=== PATIENT | female | born 1950 | race Caucasian/White ===

== ENCOUNTER 2023-06-04 13:36 | Emergency (ER) | payer MEDICAID, MEDICARE ==
[2023-06-04 14:23] VITALS: BP 162/69; O2SAT 97
[2023-06-04] MEDS ORDERED: AMOX/CLAV 875 MG/125 MG TABLET PO STA (15:21)
--- NOTE | 2023-06-04 15:22 | ED Physician Documentation ---
History of Present Illness - Stated complaint Stated Complaint: LT FT BLACK TOES - Chief complaint Chief Complaint: General - History obtained from History obtained from: Patient - Additonal information Additional information: She had trouble with her toenail on the left great toe, it fell off and then regrew but over the last 3 to 4 days she has developed discoloration of the great toe more so than the second toe. No fevers. No history of peripheral vascular disease. 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: None : None HEENT: None Psych: None Musculoskeletal: None Derm: None - Past Surgical History Past Surgical History: Yes Ortho: Other /PAPERHANGER SUPERVISOR: Other - Present Medications Home Medications: Ambulatory Orders Medication Instructions Recorded Confirmed Beclomethasone Dipropionate [Qvar] 02/13/14 02/13/14 Benazepril HCl 40 mg 02/13/14 02/13/14 Ipratropium/Albuterol Sulfate 02/13/14 02/13/14 [Combivent Respimat Inhal [place]] Triamterene/Hydrochlorothiazid 02/13/14 02/13/14 [Triamterene-Hctz 37.5-25 mg Tb] Oxycodone HCl/Acetaminophen 1 - 2 each PO Q6H PRN #15 tablet 12/12/14 [Percocet 5-325 mg Tablet] Amox/Clav 875/125 [Augmentin] 1 each PO Q12H #14 tablet 06/04/23 - Allergies Allergies/Adverse Reactions: Allergies Allergy/AdvReac Type Severity Reaction Status Date / Time No Known Drug Allergies Allergy Verified 02/13/14 15:33 - Social History Does the pt smoke?: Yes Smoking Status: Current every day smoker Does the pt drink ETOH?: Yes Does the pt have substance abuse?: No - Immunizations Immunizations are current?: Yes - POLST Patient has POLST: No PD ED PE NORMAL - Vitals Vital signs reviewed: Yes - General General: Alert and oriented X 3, No acute distress (Well-appearing nontoxic) - Extremities Extremities: Other (Left foot is warm and well-perfused with normal pedal pulses. The toenails have onychial mycosis and there is some cellulitis of the left great more than the left second toe. No pain with range of motion.) - Neuro Neuro: Alert and oriented X 3, Normal speech Results - Vitals Vitals: Vital Signs - 24 hr 06/04/23 14:13 Temperature 36.3 C L Heart Rate 78 Respiratory 18 Rate Blood Pressure 162/69 H O2 Saturation 97 Oxygen O2 Source Room air PD Medical Decision Making - ED course ED course: No evidence of peripheral vascular disease. She does have toe cellulitis treated with Augmentin and recommended podiatry follow-up for long-term care of her toenails. Departure - Departure Disposition: Home, Self Care Clinical Impression: Cellulitis of toe of left foot Condition: Good Record reviewed to determine appropriate education?: Yes Instructions: Cellulitis Dc Follow-Up: Lindsay Blanco DPM [Provider Admit Priv/Credential] - Prescriptions: Amox/Clav 875/125 [Augmentin] 1 each PO Q12H #14 tablet Comments: I sent your prescription to the [facility] pharmacy at the corner of [address] [facility] in [place]. Return if worse, it would be useful for you to follow-up with a art studio teacher, 1 is listed on this form. Forms: PCP List
== END 2023-06-04 15:45 | disposition home or self-care (01) ==
LOC: ED 13:36
DX: L03.032 Cellulitis of left toe (principal); J43.9 Emphysema, unspecified; I10 Essential (primary) hypertension; F17.200 Nicotine dependence, unspecified, uncomplicated; Z79.899 Other long term (current) drug therapy; Z79.51 Long term (current) use of inhaled steroids
CPT/HCPCS: 99282; 99283; A9270

== ENCOUNTER 2023-07-08 16:15 | Outpatient (CLI) | payer MEDICARE ==
--- NOTE | 2023-07-09 11:36 | Ultrasound Report ---
PROCEDURE: Duplex Lwr Ext Arterial Bilat INDICATIONS: HYPERTENSION TECHNIQUE: Color and pulse Doppler interrogation was performed of both lower extremity arterial systems, with im age documentation. COMPARISON: None FINDINGS: Exam is markedly limited secondary to extensive multifocal calcified plaque bilaterally. Right lower extremity: Common femoral artery: 145 cm/sec, with triphasic flow. Deep femoral artery: 160 cm/sec, with triphasic flow. Proximal superficial femoral artery: 123.4 cm/sec, with biphasic flow. Mid superficial femoral artery: 126.8 cm/sec, with biphasic (above baseline) flow. Distal superficial femoral artery (proximal): 99 cm/sec, with monophasic flow. More distally, the s uperficial femoral artery is occluded with a collateral. Popliteal artery: 30.4 cm/sec, with monophasic flow. Posterior tibial artery: 18.9 cm/sec, with monophasic trickle flow. Mid to distal posterior tibial artery is occluded Anterior tibial artery/dorsalis pedis: 66.2/16.8 cm/sec, with monophasic/monophasic flow. Abarca-scale imaging description: Extensive multifocal calcified plaque/stenoses. Distal superficial f emoral artery is occluded with a collateral vessel. Left lower extremity: Common femoral artery: 43.5 cm/sec, with monophasic flow. Deep femoral artery: 148 cm/sec, with monophasic flow. Proximal superficial femoral artery (proximal): 77 cm/sec, with monophasic flow. More distally, the proximal SFA is occluded. Mid superficial femoral artery: Occluded Distal superficial femoral artery: 129.1 cm/sec, with monophasic flow. Popliteal artery: 44.6 cm/sec, with monophasic flow. Posterior tibial artery: 44.6 cm/sec, with monophasic flow. Anterior tibial artery/dorsalis pedis: 48.5/8.9 cm/sec, with monophasic/monophasic flow. Abarca-scale imaging description: Extensive multifocal calcified plaque/stenoses. Proximal to mid SFA is occluded. Trickle flow in the dorsalis pedis. IMPRESSION: Exam is markedly limited secondary to extensive multifocal calcified plaque bilaterally. 1. Right lower extremity: - Distal superficial femoral artery is occluded with collateral flow. Monophasic flow in the visualiz ed popliteal and below the knee vasculature. Mid to distal posterior tibial artery is occluded. 2. Left lower extremity: -Monophasic waveforms throughout the patent arterial vasculature suggestive of aortoiliac inflow dise ase. -Mid superficial femoral artery is occluded. -Trickle flow in the dorsalis pedis. If patient is symptomatic, consider Vascular Surgery consultation. Reviewed by: Tiffany Joseph MD on 07/09/2023 11:35 AM PST Approved by: Tiffany Joseph MD on 07/09/2023 11:35 AM PST Station ID: [id number]
== END 2023-07-08 16:16 | disposition home or self-care (01) ==
LOC: DI 16:15
PROVIDERS: ATTEND Nurse Practitioner Family
DX: I77.1 Stricture of artery (principal); I73.9 Peripheral vascular disease, unspecified; I10 Essential (primary) hypertension
CPT/HCPCS: 93925

== ENCOUNTER 2023-09-25 14:49 | Outpatient (CLI) | payer MEDICARE ==
[2023-09-25 16:03] LABS: BASOPHILS # (AUTO) 0.1 10^3/uL (0.0-0.1); BASOPHILS % (AUTO) 1.3 %; EOSINOPHILS # (AUTO) 0.3 10^3/uL (0.0-0.7); EOSINOPHILS % (AUTO) 3.8 %; HCT - HEMATOCRIT 25.6 % (37.0-47.0); HGB - HEMOGLOBIN 7.1 g/dL (12.0-16.0); LYMPHOCYTES # (AUTO) 1.5 10^3/uL (1.5-3.5); LYMPHOCYTES % (AUTO) 20.2 %; MEAN CORPUSCULAR HEMOGLOBIN 17.5 pg (27.0-31.0); MEAN CORPUSCULAR HGB CONC 27.7 g/dL (32.0-36.0); MEAN CORPUSCULAR VOLUME 63.1 fL (81.0-99.0); MEAN PLATELET VOLUME 8.9 fL (7.9-10.8); MONOCYTES # (AUTO) 0.7 10^3/uL (0.0-1.0); MONOCYTES % (AUTO) 9.6 %; NEUTROPHILS # (AUTO) 4.7 10^3/uL (1.5-6.6); NEUTROPHILS % (AUTO) 64.8 %; PLT - PLATELET COUNT 509 10^3/uL (130-450); RED BLOOD COUNT 4.06 10^6/uL (4.20-5.40); RED CELL DISTRIBUTION WIDTH 23.3 % (12.0-15.0); WHITE BLOOD COUNT 7.2 x10^3/uL (4.8-10.8)
[2023-09-25 16:12] LABS: SLIDE REVIEW? Indicated
[2023-09-25 16:20] LABS: IRON < 10 ug/dL (50-212); TOTAL IRON BINDING CAPACITY 556 ug/dL (250-450); TRANSFERRIN 397 mg/dL (203-362)
[2023-09-25 16:41] LABS: PLATELET ESTIMATE, MANUAL INCREASED (>450,000) (NORMAL); PLATELET MORPHOLOGY NORMAL APPEARANCE (NORMAL)
[2023-09-25 17:12] LABS: FERRITIN 4.4 ng/mL (11.0-306.8)
== END 2023-09-25 14:50 | disposition home or self-care (01) ==
LOC: DI 14:49
PROVIDERS: ATTEND Nurse Practitioner Family
DX: R01.1 Cardiac murmur, unspecified (principal); I10 Essential (primary) hypertension; I73.9 Peripheral vascular disease, unspecified; J44.1 Chronic obstructive pulmonary disease with (acute) exacerbation; D50.9 Iron deficiency anemia, unspecified
CPT/HCPCS: 36415; 82728; 83540; 84466; 85025; 93307

== ENCOUNTER 2023-11-18 07:20 | Emergency (ER) | payer MEDICARE ==
--- NOTE | 2023-11-18 07:49 | ED Physician Documentation ---
PD HPI DYSPNEA - Stated complaint Stated Complaint: SOA - Chief complaint Chief Complaint: Resp - Additional information Additional information: Is a 73-year-old lady with a history of COPD and peripheral vascular disease status post left lower extremity bypass and amputation of first and second toes back in July presenting with dyspnea. Patient states she had a head cold over the past 7 to 10 days then she states that it "went down in my lungs" she has been more short of breath than usual. Her cough has been dry she has not been able to get any sputum out. She is no longer having fevers and does not feel otherwise ill but very short of breath. Using puffers 3-4 times a day. No measured fevers. No lower extremity symptoms. She is no longer smoking Patient had echocardiogram on September 25, 2023. This showed normal LV size, LV ejection fraction 60 to 65%. Normal RV normal valves. Review of Systems Constitutional: denies: Fever, Chills Respiratory: reports: Dyspnea, Cough, Wheezing PD PAST MEDICAL HISTORY - Past Medical History Cardiovascular: Hypertension, Peripheral Vascular Disease, Atrial fibrillation Respiratory: COPD, Emphysema, Other Endocrine/Autoimmune: None GI: None DATA PROCESSOR: None : None HEENT: None Psych: None Musculoskeletal: None Derm: None - Past Surgical History Past Surgical History: Yes Ortho: Other /DATA PROCESSOR: Other Cardiovascular: Vascular surgery, Other - Present Medications Home Medications: Ambulatory Orders Medication Instructions Recorded Confirmed Albuterol Sulfate [Proventil Hfa] 1 inh INH DAILY 11/18/23 11/18/23 Budesonide/Formoterol Fumarate 1 inh INH DAILY 11/18/23 11/18/23 [Symbicort 160-4.5 Mcg Inhaler] Ipratropium [place] 1 inh INH DAILY 11/18/23 11/18/23 amLODIPine [Norvasc] 1 tab PO DAILY 11/18/23 11/18/23 predniSONE [Deltasone] 60 mg PO DAILY 5 Days #15 tablet 11/18/23 - Allergies Allergies/Adverse Reactions: Allergies Allergy/AdvReac Type Severity Reaction Status Date / Time No Known Drug Allergies Allergy Verified 02/13/14 15:33 - Social History Does the pt smoke?: Yes Smoking Status: Former smoker Does the pt drink ETOH?: Yes Does the pt have substance abuse?: No - Immunizations Immunizations are current?: Yes - POLST Patient has POLST: No PD ED PE NORMAL - General General: Alert and oriented X 3 - HEENT HEENT: Atraumatic - Neck Neck: Supple, no meningeal sign - Cardiac Cardiac: RRR, No murmur - Respiratory Respiratory: Other (Markedly diminished and tight bilaterally. Using accessory muscles. Mild tachypnea. Faint end expiratory wheezing) - Abdomen Abdomen: Normal bowel sounds - Extremities Extremities: Other (Extremities warm and well-perfused. Her left first and second toe amp's are healing well.) Results - Vitals Vitals: Vital Signs - 24 hr 11/18/23 11/18/23 11/18/23 07:28 08:33 08:47 Temperature 36.5 C Heart Rate 92 83 90 Respiratory 20 12 12 Rate Blood Pressure 152/77 H O2 Saturation 96 11/18/23 11/18/23 11/18/23 08:52 09:45 11:00 Temperature Heart Rate 90 109 H 96 Respiratory 12 20 18 Rate Blood Pressure 155/83 H 153/83 H O2 Saturation 92 98 Oxygen O2 Source Room air - EKG (time done) 0741 EKG releavant findings:: EKG personally interpreted by author of this note. Relevant findings are: Normal sinus rhythm rate 91. Left atrial enlargement. Normal axis. Borderline repolarization abnormality. No obvious acute ischemia. No prior ECGs available for comparison. - Labs Labs: Laboratory Tests 11/18/23 11/18/23 11/18/23 07:59 07:59 07:59 WBC 10.2 RBC 5.72 H Hgb 9.6 L Hct 34.7 L MCV 60.7 L MCH 16.8 L MCHC 27.7 L RDW 22.0 H Plt Count 667 H MPV 8.7 Neut # (Auto) 7.6 H Lymph # (Auto) 0.9 L [place] # (Auto) 0.9 Eos # (Auto) 0.6 Baso # (Auto) 0.1 Absolute Nucleated RBC 0.00 Nucleated RBC % 0.0 Manual Slide Review Indicated RBC Morph Micro Appear 2+ MICROCYTOSIS VBG pH 7.463 H VBG pCO2 33.7 L VBG pO2 36.3 VBG HCO3 23.6 VBG Total CO2 24.6 VBG O2 Saturation 70.9 VBG Base Excess 0.2 Sodium 137 Potassium 3.7 Chloride 100 L Carbon Dioxide 27 Anion Gap 10.0 BUN 9 Creatinine 0.3 L Estimated GFR (MDRD) 217 Glucose 104 Calcium 10.4 H Total Bilirubin 0.4 AST 15 ALT 11 Alkaline Phosphatase 75 Total Protein 7.4 Albumin 4.9 Globulin 2.5 Albumin/Globulin Ratio 2.0 Nasal Adenovirus (PCR) Nasal B. parapertussis DNA (PCR) Nasal Coronavir 229E PCR Nasal Coronavir HKU1 PCR Nasal Coronavir NL63 PCR Nasal Coronavir OC43 PCR Nasal Enterovir/Rhinovir PCR Nasal Influenza B PCR Nasal Influenza A PCR Nasal Parainfluen 1 PCR Nasal Parainfluen 2 PCR Nasal Parainfluen 3 PCR Nasal Parainfluen 4 PCR Nasal RSV (PCR) Nasal B.pertussis DNA PCR Nasal C.pneumoniae (PCR) Emigdio Human Metapneumo PCR Nasal M.pneumoniae (PCR) Nasal SARS-CoV-2 (PCR) 11/18/23 08:04 WBC RBC Hgb Hct MCV MCH MCHC RDW Plt Count MPV Neut # (Auto) Lymph # (Auto) [place] # (Auto) Eos # (Auto) Baso # (Auto) Absolute Nucleated RBC Nucleated RBC % Manual Slide Review RBC Morph Micro Appear VBG pH VBG pCO2 VBG pO2 VBG HCO3 VBG Total CO2 VBG O2 Saturation VBG Base Excess Sodium Potassium Chloride Carbon Dioxide Anion Gap BUN Creatinine Estimated GFR (MDRD) Glucose Calcium Total Bilirubin AST ALT Alkaline Phosphatase Total Protein Albumin Globulin Albumin/Globulin Ratio Nasal Adenovirus (PCR) NOT DETECTED Nasal B. parapertussis DNA (PCR) NOT DETECTED Nasal Coronavir 229E PCR NOT DETECTED Nasal Coronavir HKU1 PCR NOT DETECTED Nasal Coronavir NL63 PCR NOT DETECTED Nasal Coronavir OC43 PCR NOT DETECTED Nasal Enterovir/Rhinovir PCR NOT DETECTED Nasal Influenza B PCR NOT DETECTED Nasal Influenza A PCR NOT DETECTED Nasal Parainfluen 1 PCR NOT DETECTED Nasal Parainfluen 2 PCR NOT DETECTED Nasal Parainfluen 3 PCR NOT DETECTED Nasal Parainfluen 4 PCR NOT DETECTED Nasal RSV (PCR) NOT DETECTED Nasal B.pertussis DNA PCR NOT DETECTED Nasal C.pneumoniae (PCR) NOT DETECTED Emigdio Human Metapneumo PCR NOT DETECTED Nasal M.pneumoniae (PCR) NOT DETECTED Nasal SARS-CoV-2 (PCR) DETECTED A - Rads (name of study) cxr Relevant Findings:: Final report received (no ptx, pna, chf), EMP independent interpretation of test (Hyperinflated, no obvious infiltrate, no pneumothorax or failure.) PD Medical Decision Making - ED course Complexity details: reviewed old records, reviewed results, re-evaluated patient, considered differential (Pneumonia, COPD exacerbation, acute respiratory failure, bronchitis) ED course: Patient is placed on a cardiorespiratory monitor. ECG is obtained. Patient is given Solu-Medrol and [id number]-oxei DuoNeb's. Serial evaluations reveal her to be improving.She feels much much better, her oxygen saturation is stable her work of breathing is much less and her respiratory rate is come down nicely she feels much much better. Chest x-ray shows no acute pneumonia. Her viral swab is positive for COVID 19. She is fully immunized and boostedGiven the duration of her symptoms I do not feel that any adjunctive therapies for COVID would be useful at this time. She has been sick for more than 8 days. She has no pneumonia associate with her COVID. Plan is to burst her with steroids continue her nebulizers at home. She will return to ED if worse. We discussed isolation precautions for COVID-19. Departure - Departure Disposition: 01 Home, Self Care Clinical Impression: COPD exacerbation, COVID-19 Condition: Good Instructions: Emphysema Dc, COVID-19 [facility] Prescriptions: predniSONE [Deltasone] 60 mg PO DAILY 5 Days #15 tablet Comments: You likely have a COPD exacerbation on the basis of COVID-19 infection. This explains why you have been sick for so long. This is making her COPD worse. The steroids and nebulizers we gave you should help you feel a lot better. Given on you been sick additional therapies for COVID are unlikely to offer any benefit. We will put you on prednisone for 5 more days use your inhaler every 4 hours return to the ER if worse. Stay home until you are well. Forms: PCP List Discharge Date/Time: 11/18/23 11:00
[2023-11-18] MEDS: methylPREDNISolone SUCCINATE 125 MG/2 ML VIAL IVP STA (08:01)
[2023-11-18 08:05] LABS: BASOPHILS # (AUTO) 0.1 10^3/uL (0.0-0.1); BASOPHILS % (AUTO) 1.3 %; EOSINOPHILS # (AUTO) 0.6 10^3/uL (0.0-0.7); EOSINOPHILS % (AUTO) 5.6 %; HCT - HEMATOCRIT 34.7 % (37.0-47.0); HGB - HEMOGLOBIN 9.6 g/dL (12.0-16.0); LYMPHOCYTES # (AUTO) 0.9 10^3/uL (1.5-3.5); LYMPHOCYTES % (AUTO) 9.2 %; MEAN CORPUSCULAR HEMOGLOBIN 16.8 pg (27.0-31.0); MEAN CORPUSCULAR HGB CONC 27.7 g/dL (32.0-36.0); MEAN CORPUSCULAR VOLUME 60.7 fL (81.0-99.0); MEAN PLATELET VOLUME 8.7 fL (7.9-10.8); MONOCYTES # (AUTO) 0.9 10^3/uL (0.0-1.0); MONOCYTES % (AUTO) 8.6 %; NEUTROPHILS # (AUTO) 7.6 10^3/uL (1.5-6.6); NEUTROPHILS % (AUTO) 74.9 %; PLT - PLATELET COUNT 667 10^3/uL (130-450); RED BLOOD COUNT 5.72 10^6/uL (4.20-5.40); WHITE BLOOD COUNT 10.2 x10^3/uL (4.8-10.8)
[2023-11-18 08:06] LABS: VBG PH 7.463 (7.31-7.41)
[2023-11-18 08:07] LABS: VBG BASE EXCESS 0.2 mmol/L (-2 - +2); VBG HCO3 23.6 mmol/L (23-28); VBG OXYGEN SATURATION 70.9 % (60-80); VBG PCO2 33.7 mmHg (41-51); VBG PO2 36.3 mmHg (25-47); VBG TOTAL CO2 24.6 mmol/L (24-29)
[2023-11-18 08:08] LABS: SLIDE REVIEW? Indicated
[2023-11-18 08:24] LABS: ALBUMIN 4.9 g/dL (3.2-5.5); BILIRUBIN,TOTAL 0.4 mg/dL (0.2-1.0); CALCIUM 10.4 mg/dL (8.5-10.3); CREATININE 0.3 mg/dL (0.6-1.3); POTASSIUM 3.7 mmol/L (3.5-4.5); TOTAL PROTEIN 7.4 g/dL (6.4-8.9)
[2023-11-18] MEDS: IPRATROPIUM/ALBUTEROL 3 ML NEB INH SCH (08:31)
[2023-11-18] MEDS: IPRATROPIUM/ALBUTEROL 3 ML NEB INH PRN (08:46)
--- NOTE | 2023-11-18 08:49 | XRAY Report ---
PROCEDURE: Chest 1V INDICATIONS: SOB TECHNIQUE: One view of the chest was acquired. COMPARISON: 03/15/2014. FINDINGS: Surgical changes and devices: None. Lungs and pleura: No pleural effusions or pneumothorax. Lungs are clear. Mediastinum: Mediastinal contours appear normal. Heart size is normal. Bones and chest wall: No suspicious bony lesions. Overlying soft tissues appear unremarkable. IMPRESSION: No acute cardiopulmonary process. Reviewed by: Greg Delgado MD on 11/18/2023 8:47 AM PDT Approved by: Greg Delgado MD on 11/18/2023 8:47 AM PDT Station ID: [id number]
[2023-11-18 08:59] LABS: B. PARAPERTUSSIS- RESP PCR PAN NOT DETECTED; B. PERTUSSIS- RESP PCR PANEL NOT DETECTED; C. PNEUMONIAE- RESP PCR PANEL NOT DETECTED; CORONAVIRUS 229E-RESP PCR NOT DETECTED; CORONAVIRUS HKU1-RESP PCR NOT DETECTED; CORONAVIRUS NL63-RESP PCR NOT DETECTED; CORONAVIRUS OC43-RESP PCR NOT DETECTED; HUMAN METAPNEUMOVIRUS NOT DETECTED; INFLUENZA A- RESP PCR PANEL NOT DETECTED; INFLUENZA B - RESP PCR PANEL NOT DETECTED; M. PNEUMONIAE- RESP PCR PANEL NOT DETECTED; PARAINFLUENZA VIRUS 1 NOT DETECTED; PARAINFLUENZA VIRUS 2 NOT DETECTED; PARAINFLUENZA VIRUS 3 NOT DETECTED; PARAINFLUENZA VIRUS 4 NOT DETECTED; RHINOVIRUS/ENTEROVIRUS NOT DETECTED; RSV- RESP PCR PANEL NOT DETECTED
[2023-11-18 09:08] LABS: SARS-CoV-2 -RESP PCR PANEL DETECTED
[2023-11-18 11:34] VITALS: BP 153/83; O2SAT 98
== END 2023-11-18 11:00 | disposition home or self-care (01) ==
LOC: ED 07:20
DX: J44.1 Chronic obstructive pulmonary disease with (acute) exacerbation (principal); U07.1 COVID-19; I10 Essential (primary) hypertension; I48.91 Unspecified atrial fibrillation; Z87.891 Personal history of nicotine dependence
CPT/HCPCS: 36415; 80053; 82803; 85025; 87633; 93005; 94640; 96374; 99284

== ENCOUNTER 2023-12-14 20:17 | Emergency (ER) | payer MEDICARE ==
--- NOTE | 2023-12-14 20:38 | ED Physician Documentation ---
PD HPI DYSPNEA - Stated complaint Stated Complaint: SOA - Chief complaint Chief Complaint: Resp - History obtained from History obtained from: Patient - Additional information Additional information: Patient is a 73-year-old female with a history of COPD with worsening shortness of breath over the last 2 days.Patient reports having a cough but is not able to expel anything. She was seen here earlier this month and found to have COVID and was started on a course of prednisone for COPD exacerbation. She is not on home oxygen. She does not currently smoke anymore. Denies chest pain or leg swelling. 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 : None HEENT: None Psych: None Musculoskeletal: None Derm: None - Past Surgical History Past Surgical History: Yes Ortho: Other /FURNITURE MECHANIC: Other Cardiovascular: Vascular surgery, Other - Present Medications Home Medications: Ambulatory Orders Medication Instructions Recorded Confirmed Albuterol Sulfate [Proventil Hfa] 1 inh INH DAILY 11/18/23 11/18/23 Budesonide/Formoterol Fumarate 1 inh INH DAILY 11/18/23 11/18/23 [Symbicort 160-4.5 Mcg Inhaler] Ipratropium [place] 1 inh INH DAILY 11/18/23 11/18/23 amLODIPine [Norvasc] 1 tab PO DAILY 11/18/23 11/18/23 predniSONE [Deltasone] 60 mg PO DAILY 5 Days #15 tablet 11/18/23 predniSONE [Deltasone] 60 mg PO DAILY 4 Days #12 tablet 12/15/23 - Allergies Allergies/Adverse Reactions: Allergies Allergy/AdvReac Type Severity Reaction Status Date / Time No Known Drug Allergies Allergy Verified 12/14/23 20:20 - Social History Does the pt smoke?: Yes Smoking Status: Current every day smoker Does the pt drink ETOH?: Yes Does the pt have substance abuse?: No - Immunizations Immunizations are current?: Yes - POLST Patient has POLST: No PD ED PE NORMAL - General General: Alert and oriented X 3, Other (Thin, frail appearing, mildly distressed) - HEENT HEENT: Atraumatic, Moist mucous membranes, Pharynx benign - Neck Neck: Supple, no meningeal sign - Cardiac Cardiac: RRR, Strong equal pulses - Respiratory Respiratory: Other (Tachypneic, Poor air entry, wheezing) - Abdomen Abdomen: Soft, Non tender, Non distended - Derm Derm: Warm and dry - Extremities Extremities: No edema, No calf tenderness / cord Results - Vitals Vitals: Vital Signs - 24 hr 12/14/23 12/14/23 12/14/23 20:21 20:45 21:30 Temperature 36.5 C Heart Rate 100 100 108 H Respiratory 24 24 29 H Rate Blood Pressure 180/99 H 194/93 H 209/97 H O2 Saturation 93 93 97 12/14/23 12/14/23 12/14/23 21:55 22:10 22:13 Temperature Heart Rate 107 H 107 H 102 H Respiratory 24 15 Rate Blood Pressure 155/96 H O2 Saturation 100 12/14/23 12/14/23 12/15/23 23:00 23:52 00:00 Temperature Heart Rate 96 102 H 90 Respiratory 14 14 Rate Blood Pressure 162/86 H 147/88 H O2 Saturation 99 96 12/15/23 12/15/23 12/15/23 00:56 01:28 02:10 Temperature Heart Rate 97 96 95 Respiratory 21 20 Rate Blood Pressure 147/88 H 154/96 H O2 Saturation 93 96 Oxygen O2 Source Room air - Labs Labs: Laboratory Tests 12/14/23 12/14/23 12/14/23 20:41 20:41 20:41 WBC 9.5 RBC 5.82 H Hgb 10.5 L Hct 36.4 L MCV 62.5 L MCH 18.0 L MCHC 28.8 L RDW 25.6 H Plt Count 610 H MPV 8.6 Neut # (Auto) 7.0 H Lymph # (Auto) 1.3 L [place] # (Auto) 0.7 Eos # (Auto) 0.4 Baso # (Auto) 0.1 Absolute Nucleated RBC 0.00 Nucleated RBC % 0.0 VBG pH VBG pCO2 VBG pO2 VBG HCO3 VBG Total CO2 VBG O2 Saturation VBG Base Excess Sodium 133 L Potassium 3.6 Chloride 97 L Carbon Dioxide 24 Anion Gap 12.0 BUN 11 Creatinine 0.4 L Estimated GFR (MDRD) 156 Glucose 117 H Calcium 10.7 H Total Bilirubin 0.5 AST 16 ALT 11 Alkaline Phosphatase 67 Total Protein 7.5 Albumin 5.4 Globulin 2.1 Albumin/Globulin Ratio 2.6 H Lipase 17 Nasal Adenovirus (PCR) NOT DETECTED Nasal B. parapertussis DNA (PCR) NOT DETECTED Nasal Coronavir 229E PCR NOT DETECTED Nasal Coronavir HKU1 PCR NOT DETECTED Nasal Coronavir NL63 PCR NOT DETECTED Nasal Coronavir OC43 PCR NOT DETECTED Nasal Enterovir/Rhinovir PCR NOT DETECTED Nasal Influenza B PCR NOT DETECTED Nasal Influenza A PCR NOT DETECTED Nasal Parainfluen 1 PCR NOT DETECTED Nasal Parainfluen 2 PCR NOT DETECTED Nasal Parainfluen 3 PCR NOT DETECTED Nasal Parainfluen 4 PCR NOT DETECTED Nasal RSV (PCR) NOT DETECTED Nasal B.pertussis DNA PCR NOT DETECTED Nasal C.pneumoniae (PCR) NOT DETECTED Emigdio Human Metapneumo PCR NOT DETECTED Nasal M.pneumoniae (PCR) NOT DETECTED Nasal SARS-CoV-2 (PCR) NOT DETECTED 12/14/23 21:59 WBC RBC Hgb Hct MCV MCH MCHC RDW Plt Count MPV Neut # (Auto) Lymph # (Auto) [place] # (Auto) Eos # (Auto) Baso # (Auto) Absolute Nucleated RBC Nucleated RBC % VBG pH 7.529 H VBG pCO2 26.5 L VBG pO2 101.9 H VBG HCO3 21.6 L VBG Total CO2 22.4 L VBG O2 Saturation 98.1 H VBG Base Excess -0.1 Sodium Potassium Chloride Carbon Dioxide Anion Gap BUN Creatinine Estimated GFR (MDRD) Glucose Calcium Total Bilirubin AST ALT Alkaline Phosphatase Total Protein Albumin Globulin Albumin/Globulin Ratio Lipase Nasal Adenovirus (PCR) Nasal B. parapertussis DNA (PCR) Nasal Coronavir 229E PCR Nasal Coronavir HKU1 PCR Nasal Coronavir NL63 PCR Nasal Coronavir OC43 PCR Nasal Enterovir/Rhinovir PCR Nasal Influenza B PCR Nasal Influenza A PCR Nasal Parainfluen 1 PCR Nasal Parainfluen 2 PCR Nasal Parainfluen 3 PCR Nasal Parainfluen 4 PCR Nasal RSV (PCR) Nasal B.pertussis DNA PCR Nasal C.pneumoniae (PCR) Emigdio Human Metapneumo PCR Nasal M.pneumoniae (PCR) Nasal SARS-CoV-2 (PCR) PD Medical Decision Making - ED course Complexity details: reviewed results, re-evaluated patient, d/w patient ED course: Patient is a 69-year-old female presenting for evaluation of shortness of air. Has a history of COPD and recently was seen with a COPD exacerbation and positive for COVID. She is not requiring oxygen but does appear tachypneic with poor air entry. Given DuoNeb treatment with mild improvement but still with decreased air movement. Additional neb treatment was ordered. CBC, chemistries were obtained and reviewed. Baseline anemia - Improved from prior labs. VBG without signs of acidosis. Chest x-ray which I reviewed is negative for pneumonia and respiratory swab is negative for tested viruses. Patient was given a dose of IV Solu-Medrol. She was placed on BiPAP for short period of time but this was for work of breathing. She was able to be weaned off of BiPAP and monitored for at least an hour without any worsening symptoms. Therefore at this time I do not feel she requires admission as she has stable vital signs, not requiring oxygen and was able to be weaned off of BiPAP. I suspect this is likely once the steroids have started to work. Patient to continue on a course of prednisone and has enough albuterol at home. She is counseled on strict return precautions for any worsening symptoms. 2119 - Patient appears slightly more comfortable but still appears tachypneic and having poor air entry. Additional neb treatment along with ABG ordered. Will Reevaluate shortly and to consider BiPAP. Departure - Departure Disposition: 01 Home, Self Care Clinical Impression: COPD exacerbation Condition: Stable Instructions: ED COPD Flare Prescriptions: predniSONE [Deltasone] 60 mg PO DAILY 4 Days #12 tablet Comments: You were treated for a COPD exacerbation. We briefly needed to place you on a machine called BiPAP for extra support but we have been able to take you off this successfully. I am starting you on a course of prednisone and have sent the prescription to [facility] in [place]. You were given a dose here tonight And your next dose will not be due until Friday morning. Please continue with your Albuterol inhaler or nebulizer as needed for shortness of air. Return to the emergency department with any worsening symptoms. Forms: PCP List Discharge Date/Time: 12/15/23 02:17
[2023-12-14] MEDS: IPRATROPIUM/ALBUTEROL 3 ML NEB INH STA (20:45)
[2023-12-14 20:52] LABS: BASOPHILS # (AUTO) 0.1 10^3/uL (0.0-0.1); EOSINOPHILS # (AUTO) 0.4 10^3/uL (0.0-0.7); EOSINOPHILS % (AUTO) 3.9 %; HCT - HEMATOCRIT 36.4 % (37.0-47.0); HGB - HEMOGLOBIN 10.5 g/dL (12.0-16.0); LYMPHOCYTES # (AUTO) 1.3 10^3/uL (1.5-3.5); LYMPHOCYTES % (AUTO) 13.5 %; MEAN CORPUSCULAR HGB CONC 28.8 g/dL (32.0-36.0); MEAN CORPUSCULAR VOLUME 62.5 fL (81.0-99.0); MEAN PLATELET VOLUME 8.6 fL (7.9-10.8); MONOCYTES # (AUTO) 0.7 10^3/uL (0.0-1.0); MONOCYTES % (AUTO) 7.2 %; NEUTROPHILS % (AUTO) 74.2 %; PLT - PLATELET COUNT 610 10^3/uL (130-450); RED BLOOD COUNT 5.82 10^6/uL (4.20-5.40); RED CELL DISTRIBUTION WIDTH 25.6 % (12.0-15.0); WHITE BLOOD COUNT 9.5 x10^3/uL (4.8-10.8)
[2023-12-14] MEDS: methylPREDNISolone SUCCINATE 125 MG/2 ML VIAL IVP STA (20:52)
[2023-12-14 21:24] LABS: ALBUMIN 5.4 g/dL (3.2-5.5); ALBUMIN/GLOBULIN RATIO 2.6 (1.0-2.2); BILIRUBIN,TOTAL 0.5 mg/dL (0.2-1.0); CALCIUM 10.7 mg/dL (8.5-10.3); CREATININE 0.4 mg/dL (0.6-1.3); POTASSIUM 3.6 mmol/L (3.5-4.5); TOTAL PROTEIN 7.5 g/dL (6.4-8.9)
--- NOTE | 2023-12-14 21:27 | XRAY Report ---
PROCEDURE: Chest 1V INDICATIONS: SOA TECHNIQUE: One view of the chest was acquired. COMPARISON: Chest x-ray 11/18/2023. FINDINGS: Surgical changes and devices: None. Lungs and pleura: No pleural effusions or pneumothorax. Lungs are clear. Lungs are hyperinflated suggestive COPD. Mediastinum: Mediastinal contours appear normal. Heart size is normal. Bones and chest wall: No suspicious bony lesions. Overlying soft tissues appear unremarkable. IMPRESSION: No acute cardiopulmonary process. Reviewed by: Gina Saenz MD on 12/14/2023 9:25 PM PDT Approved by: Gina Saenz MD on 12/14/2023 9:25 PM PDT Station ID: [id number]
[2023-12-14 21:53] LABS: B. PARAPERTUSSIS- RESP PCR PAN NOT DETECTED; B. PERTUSSIS- RESP PCR PANEL NOT DETECTED; C. PNEUMONIAE- RESP PCR PANEL NOT DETECTED; CORONAVIRUS 229E-RESP PCR NOT DETECTED; CORONAVIRUS HKU1-RESP PCR NOT DETECTED; CORONAVIRUS NL63-RESP PCR NOT DETECTED; CORONAVIRUS OC43-RESP PCR NOT DETECTED; HUMAN METAPNEUMOVIRUS NOT DETECTED; INFLUENZA A- RESP PCR PANEL NOT DETECTED; INFLUENZA B - RESP PCR PANEL NOT DETECTED; M. PNEUMONIAE- RESP PCR PANEL NOT DETECTED; PARAINFLUENZA VIRUS 1 NOT DETECTED; PARAINFLUENZA VIRUS 2 NOT DETECTED; PARAINFLUENZA VIRUS 3 NOT DETECTED; PARAINFLUENZA VIRUS 4 NOT DETECTED; RHINOVIRUS/ENTEROVIRUS NOT DETECTED; RSV- RESP PCR PANEL NOT DETECTED; SARS-CoV-2 -RESP PCR PANEL NOT DETECTED
[2023-12-14] MEDS: ALBUTEROL NEB 2.5 MG/3 ML INH STA (21:55)
[2023-12-14 22:07] LABS: VBG PH 7.529 (7.31-7.41)
[2023-12-14 22:08] LABS: VBG BASE EXCESS -0.1 mmol/L (-2 - +2); VBG HCO3 21.6 mmol/L (23-28); VBG OXYGEN SATURATION 98.1 % (60-80); VBG PCO2 26.5 mmHg (41-51); VBG PO2 101.9 mmHg (25-47); VBG TOTAL CO2 22.4 mmol/L (24-29)
[2023-12-15] MEDS: predniSONE 20 MG TABLET PO STA (01:59)
[2023-12-15 02:17] VITALS: BP 154/96; O2SAT 96
== END 2023-12-15 02:17 | disposition home or self-care (01) ==
LOC: ED 20:17
DX: J44.1 Chronic obstructive pulmonary disease with (acute) exacerbation (principal); Z87.891 Personal history of nicotine dependence
CPT/HCPCS: 36415; 71045; 80053; 82803; 83690; 85025; 87633; 93005; 94640; 94660; 94664; 96374; 99284; J7512

== ENCOUNTER 2024-03-05 04:30 | Outpatient (CLI) | payer MEDICARE | END 2024-03-05 23:59 | disposition critical access hospital (66) | LOC: EMS 04:30 | DX: R06.02 Shortness of breath (principal); R06.2 Wheezing; R00.0 Tachycardia, unspecified; I10 Essential (primary) hypertension; J44.9 Chronic obstructive pulmonary disease, unspecified | CPT/HCPCS: A0425; A0427 ==

== ENCOUNTER 2024-03-05 04:48 | Emergency (ER) | payer MEDICARE ==
[2024-03-05] MEDS: NITROGLYCERIN 2% PASTE TOP STA (05:02)
[2024-03-05] MEDS ORDERED: NITROGLYCERIN 2% PASTE TOP ONE (05:02)
--- NOTE | 2024-03-05 05:17 | ED Physician Documentation ---
History of Present Illness - Stated complaint Stated Complaint: SOA/DIFF BREATHING - Chief complaint Chief Complaint: Resp - History obtained from History obtained from: Patient, EMS - Additonal information Additional information: 73yF with pmh copd p/w acute soa this am, bibems with RA o2 sat 80% on scene. 3 nebs provided in addition to 125 solumedrol and 2g magnesium. denies fever. history limited by patient acuity PD PAST MEDICAL HISTORY - Past Medical History Cardiovascular: Hypertension, Peripheral Vascular Disease, Atrial fibrillation Respiratory: COPD, Emphysema, Other Endocrine/Autoimmune: None GI: None RF DESIGN ENGINEER: None : None HEENT: None Psych: None Musculoskeletal: None Derm: None - Past Surgical History Past Surgical History: Yes Ortho: Other /RF DESIGN ENGINEER: Other Cardiovascular: Vascular surgery, Other - Present Medications Home Medications: Ambulatory Orders Medication Instructions Recorded Confirmed Budesonide/Formoterol Fumarate 1 inh INH BID 11/18/23 03/05/24 [Symbicort 160-4.5 Mcg Inhaler] amLODIPine [Norvasc] 5 mg PO DAILY 11/18/23 03/05/24 Albuterol 2.5 mg INH Q4H PRN 03/05/24 03/05/24 Albuterol Sulfate [Proair 90 mcg IH Q4HR PRN 03/05/24 03/05/24 Digihaler] Ferrous Sulfate 1 tab PO DAILY 03/05/24 03/05/24 Ipratropium [Atrovent] 1 inh INH Q4HR PRN 03/05/24 03/05/24 Omeprazole 20 mg PO DAILY 03/05/24 03/05/24 - Allergies Allergies/Adverse Reactions: Allergies Allergy/AdvReac Type Severity Reaction Status Date / Time No Known Drug Allergies Allergy Verified 03/05/24 04:53 - Social History Does the pt smoke?: Yes Smoking Status: Current every day smoker Does the pt drink ETOH?: Yes Does the pt have substance abuse?: No - Immunizations Immunizations are current?: Yes - POLST Patient has POLST: No PD ED PE NORMAL - Vitals Vital signs reviewed: Yes - General General: Alert and oriented X 3, Other (moderate respiratory distress, tripodding) - HEENT HEENT: Atraumatic, PERRL, EOMI, Moist mucous membranes, Pharynx benign - Neck Neck: Supple, no meningeal sign - Cardiac Cardiac: Other (tachycardic rate, regular rhythm) - Respiratory Respiratory: Other (increased wob. inspiratory and expiratory wheezing) - Abdomen Abdomen: Non tender, Non distended Results - Vitals Vitals: Vital Signs - 24 hr 03/05/24 03/05/24 03/05/24 04:53 05:10 05:17 Temperature 36.3 C L Heart Rate 113 H 169 H 164 H Respiratory 21 26 H Rate Blood Pressure 222/117 H 189/113 H O2 Saturation 82 L 98 03/05/24 03/05/24 03/05/24 05:30 05:50 06:00 Temperature Heart Rate 159 H 107 H 106 H Respiratory 21 19 17 Rate Blood Pressure 104/81 H 123/85 H O2 Saturation 99 97 100 03/05/24 03/05/24 03/05/24 06:30 06:31 07:00 Temperature Heart Rate 110 H 95 102 H Respiratory 19 17 Rate Blood Pressure 124/94 H 138/77 H O2 Saturation 95 87 L Oxygen O2 Source BIPAP - EKG (time done) 0518 EKG releavant findings:: EKG personally interpreted by author of this note. Relevant findings are: Rate: Rate (enter#) (162) Rhythm: Sinus tachycardia Hancock: Normal Intervals: Normal CA QRS: Normal Ischemia: ST depression (v6, inferior leads) - Labs Labs: Laboratory Tests 03/05/24 03/05/24 03/05/24 05:10 05:10 05:10 WBC 9.0 RBC 5.76 H Hgb 13.9 Hct 44.2 MCV 76.7 L MCH 24.1 L MCHC 31.4 L RDW 21.1 H Plt Count 462 H MPV 8.9 Neut # (Auto) 4.9 Lymph # (Auto) 2.6 Simpson # (Auto) 1.0 Eos # (Auto) 0.3 Baso # (Auto) 0.1 Absolute Nucleated RBC 0.00 Nucleated RBC % 0.0 Manual Slide Review Indicated WBC Morphology NORMAL APPEARANCE Platelet Estimate INCREASED (>450,000) Platelet Morphology NORMAL APPEARANCE RBC Morph Micro Appear 2+ ANISOCYTOSIS Bld Gas Analysis Time Sample Site ABG pH ABG pCO2 ABG pO2 ABG HCO3 ABG Total CO2 ABG O2 Saturation ABG Base Excess Rashaad Test VBG pH VBG pCO2 VBG pO2 VBG HCO3 VBG Total CO2 VBG O2 Saturation VBG Base Excess Respiration Rate O2 Delivery Device Vent Mode FiO2 Pressure Support Vent EPAP IPAP Sodium 135 Potassium 3.2 L Chloride 96 L Carbon Dioxide 31 Anion Gap 8.0 BUN 7 Creatinine 0.5 L Estimated GFR (MDRD) 121 Glucose 261 H Lactic Acid Calcium 10.0 Total Bilirubin 0.4 AST 18 ALT 15 Alkaline Phosphatase 64 Troponin I High Sens 10.9 B-Natriuretic Peptide 93 Total Protein 7.7 Albumin 5.3 Globulin 2.4 Albumin/Globulin Ratio 2.2 Lipase 11 Nasal Adenovirus (PCR) Nasal B. parapertussis DNA (PCR) Nasal Coronavir 229E PCR Nasal Coronavir HKU1 PCR Nasal Coronavir NL63 PCR Nasal Coronavir OC43 PCR Nasal Enterovir/Rhinovir PCR Nasal Influenza B PCR Nasal Influenza A PCR Nasal Parainfluen 1 PCR Nasal Parainfluen 2 PCR Nasal Parainfluen 3 PCR Nasal Parainfluen 4 PCR Nasal RSV (PCR) Nasal B.pertussis DNA PCR Nasal C.pneumoniae (PCR) Emigdio Human Metapneumo PCR Nasal M.pneumoniae (PCR) Nasal SARS-CoV-2 (PCR) 03/05/24 03/05/24 03/05/24 05:10 05:12 05:53 WBC RBC Hgb Hct MCV MCH MCHC RDW Plt Count MPV Neut # (Auto) Lymph # (Auto) Simpson # (Auto) Eos # (Auto) Baso # (Auto) Absolute Nucleated RBC Nucleated RBC % Manual Slide Review WBC Morphology Platelet Estimate Platelet Morphology RBC Morph Micro Appear Bld Gas Analysis Time Sample Site ABG pH ABG pCO2 ABG pO2 ABG HCO3 ABG Total CO2 ABG O2 Saturation ABG Base Excess Rashaad Test VBG pH 7.320 VBG pCO2 46.5 VBG pO2 55.8 H VBG HCO3 23.5 VBG Total CO2 25.0 VBG O2 Saturation 86.4 H VBG Base Excess -2.8 L Respiration Rate O2 Delivery Device Vent Mode FiO2 Pressure Support Vent EPAP IPAP Sodium Potassium Chloride Carbon Dioxide Anion Gap BUN Creatinine Estimated GFR (MDRD) Glucose Lactic Acid 1.3 Calcium Total Bilirubin AST ALT Alkaline Phosphatase Troponin I High Sens B-Natriuretic Peptide Total Protein Albumin Globulin Albumin/Globulin Ratio Lipase Nasal Adenovirus (PCR) NOT DETECTED Nasal B. parapertussis DNA (PCR) NOT DETECTED Nasal Coronavir 229E PCR NOT DETECTED Nasal Coronavir HKU1 PCR NOT DETECTED Nasal Coronavir NL63 PCR NOT DETECTED Nasal Coronavir OC43 PCR NOT DETECTED Nasal Enterovir/Rhinovir PCR NOT DETECTED Nasal Influenza B PCR NOT DETECTED Nasal Influenza A PCR NOT DETECTED Nasal Parainfluen 1 PCR NOT DETECTED Nasal Parainfluen 2 PCR NOT DETECTED Nasal Parainfluen 3 PCR NOT DETECTED Nasal Parainfluen 4 PCR NOT DETECTED Nasal RSV (PCR) NOT DETECTED Nasal B.pertussis DNA PCR NOT DETECTED Nasal C.pneumoniae (PCR) NOT DETECTED Emigdio Human Metapneumo PCR NOT DETECTED Nasal M.pneumoniae (PCR) NOT DETECTED Nasal SARS-CoV-2 (PCR) NOT DETECTED 03/05/24 06:24 WBC RBC Hgb Hct MCV MCH MCHC RDW Plt Count MPV Neut # (Auto) Lymph # (Auto) Simpson # (Auto) Eos # (Auto) Baso # (Auto) Absolute Nucleated RBC Nucleated RBC % Manual Slide Review WBC Morphology Platelet Estimate Platelet Morphology RBC Morph Micro Appear Bld Gas Analysis Time 06:29 Sample Site LEFT RADIAL ABG pH 7.46 H ABG pCO2 34 ABG pO2 115 H ABG HCO3 23.4 ABG Total CO2 24.4 ABG O2 Saturation 99 H ABG Base Excess 0.2 Rashaad Test POSITIVE VBG pH VBG pCO2 VBG pO2 VBG HCO3 VBG Total CO2 VBG O2 Saturation VBG Base Excess Respiration Rate 18 O2 Delivery Device BiPAP Vent Mode SYNCHRONOUS/TIMES FiO2 40.00 Pressure Support Vent 5 EPAP 5 IPAP 10 Sodium Potassium Chloride Carbon Dioxide Anion Gap BUN Creatinine Estimated GFR (MDRD) Glucose Lactic Acid Calcium Total Bilirubin AST ALT Alkaline Phosphatase Troponin I High Sens B-Natriuretic Peptide Total Protein Albumin Globulin Albumin/Globulin Ratio Lipase Nasal Adenovirus (PCR) Nasal B. parapertussis DNA (PCR) Nasal Coronavir 229E PCR Nasal Coronavir HKU1 PCR Nasal Coronavir NL63 PCR Nasal Coronavir OC43 PCR Nasal Enterovir/Rhinovir PCR Nasal Influenza B PCR Nasal Influenza A PCR Nasal Parainfluen 1 PCR Nasal Parainfluen 2 PCR Nasal Parainfluen 3 PCR Nasal Parainfluen 4 PCR Nasal RSV (PCR) Nasal B.pertussis DNA PCR Nasal C.pneumoniae (PCR) Emigdio Human Metapneumo PCR Nasal M.pneumoniae (PCR) Nasal SARS-CoV-2 (PCR) PD Medical Decision Making - ED course ED course: 73yF p/w acute soa, possible copd exacerbation vs acute pulmonary edema. extremely hypertensive on arrival with bp 222/117. nitropaste and nitroglycerin tab ordered. bipap placed with improvement in wob. She already had 3 nebs at home and 3 more en route so will hold off for now until labs start to arrive. cxr shows hyperinflation c/w copd. patient endorsed to Dr. Dolan at 7am shift change pending 2nd troponin. - Critical Care Time(min): 30 Time Includes: Direct patient care, Review records, Reassess patient, Document care, Coordinate care Data interpretation: Labs, Pulse ox, ABG, CXR, Prior EKG Departure - Departure Clinical Impression: Hypokalemia, Hyperglycemia, Shortness of breath Forms: PCP List
[2024-03-05 05:21] LABS: BASOPHILS # (AUTO) 0.1 10^3/uL (0.0-0.1); BASOPHILS % (AUTO) 1.5 %; EOSINOPHILS # (AUTO) 0.3 10^3/uL (0.0-0.7); EOSINOPHILS % (AUTO) 3.8 %; HCT - HEMATOCRIT 44.2 % (37.0-47.0); HGB - HEMOGLOBIN 13.9 g/dL (12.0-16.0); LYMPHOCYTES # (AUTO) 2.6 10^3/uL (1.5-3.5); MEAN CORPUSCULAR HEMOGLOBIN 24.1 pg (27.0-31.0); MEAN CORPUSCULAR HGB CONC 31.4 g/dL (32.0-36.0); MEAN CORPUSCULAR VOLUME 76.7 fL (81.0-99.0); MEAN PLATELET VOLUME 8.9 fL (7.9-10.8); MONOCYTES % (AUTO) 11.1 %; NEUTROPHILS # (AUTO) 4.9 10^3/uL (1.5-6.6); NEUTROPHILS % (AUTO) 54.3 %; PLT - PLATELET COUNT 462 10^3/uL (130-450); RED BLOOD COUNT 5.76 10^6/uL (4.20-5.40); RED CELL DISTRIBUTION WIDTH 21.1 % (12.0-15.0)
[2024-03-05 05:23] LABS: SLIDE REVIEW? Indicated
[2024-03-05] MEDS: NITROGLYCERIN SL 0.4 MG TABLET SL STA (05:24)
[2024-03-05 05:39] LABS: ALBUMIN 5.3 g/dL (3.2-5.5); ALBUMIN/GLOBULIN RATIO 2.2 (1.0-2.2); BILIRUBIN,TOTAL 0.4 mg/dL (0.2-1.0); CREATININE 0.5 mg/dL (0.6-1.3); POTASSIUM 3.2 mmol/L (3.5-4.5); TOTAL PROTEIN 7.7 g/dL (6.4-8.9)
[2024-03-05 05:45] LABS: TROPONIN I HIGH SENSITIVITY 10.9 ng/L (2.3-14.8)
[2024-03-05] MEDS: POTASSIUM CHLOR 10 MEQ/100 ML 10 MEQ/100 ML BAG IV STA (05:59)
[2024-03-05 06:04] LABS: VBG BASE EXCESS -2.8 mmol/L (-2 - +2); VBG HCO3 23.5 mmol/L (23-28); VBG OXYGEN SATURATION 86.4 % (60-80); VBG PCO2 46.5 mmHg (41-51); VBG PH 7.32 (7.31-7.41); VBG PO2 55.8 mmHg (25-47)
[2024-03-05 06:11] LABS: PLATELET ESTIMATE, MANUAL INCREASED (>450,000) (NORMAL); PLATELET MORPHOLOGY NORMAL APPEARANCE (NORMAL)
[2024-03-05 06:12] LABS: WBC MORPHOLOGY (MULTIPLE) NORMAL APPEARANCE (NORMAL)
[2024-03-05 06:33] LABS: ABG BASE EXCESS 0.2 mmol/L (-2.0-3.0); ABG HCO3 23.4 mmol/L (22.0-26.0); ABG PCO2 34 mmHg (34-45); ABG PH 7.46 (7.35-7.45); ABG PO2 115 mmHg (80-100); ABG TCO2 24.4 MMOL/L (21.0-29.0)
[2024-03-05 06:34] LABS: ABG MODE OF VENTILATION SYNCHRONOUS/TIMES; ABG OXYGEN SATURATION 99 % (94-98); ABG RESPIRATORY RATE 18 b/min; ALLEN TEST POSITIVE
[2024-03-05 06:37] LABS: B. PARAPERTUSSIS- RESP PCR PAN NOT DETECTED; B. PERTUSSIS- RESP PCR PANEL NOT DETECTED; C. PNEUMONIAE- RESP PCR PANEL NOT DETECTED; CORONAVIRUS 229E-RESP PCR NOT DETECTED; CORONAVIRUS HKU1-RESP PCR NOT DETECTED; CORONAVIRUS NL63-RESP PCR NOT DETECTED; CORONAVIRUS OC43-RESP PCR NOT DETECTED; HUMAN METAPNEUMOVIRUS NOT DETECTED; INFLUENZA A- RESP PCR PANEL NOT DETECTED; INFLUENZA B - RESP PCR PANEL NOT DETECTED; M. PNEUMONIAE- RESP PCR PANEL NOT DETECTED; PARAINFLUENZA VIRUS 1 NOT DETECTED; PARAINFLUENZA VIRUS 2 NOT DETECTED; PARAINFLUENZA VIRUS 3 NOT DETECTED; PARAINFLUENZA VIRUS 4 NOT DETECTED; RHINOVIRUS/ENTEROVIRUS NOT DETECTED; RSV- RESP PCR PANEL NOT DETECTED; SARS-CoV-2 -RESP PCR PANEL NOT DETECTED
[2024-03-05] MEDS: METOPROLOL 5 MG/5 ML VIAL IVP STA (08:09)
[2024-03-05] MEDS: HEPARIN 25000UNITS/500ML (D5W) 25,000 UNIT/500 ML BAG IV SCH (08:11)
[2024-03-05] MEDS: METOPROLOL TARTRATE 50 MG TABLET PO STA (08:13)
[2024-03-05] MEDS: ASPIRIN CHEW 81 MG TABLET PO STA (08:13)
--- NOTE | 2024-03-05 09:22 | XRAY Report ---
PROCEDURE: Chest 1V INDICATIONS: Chest Pain TECHNIQUE: One view of the chest was acquired. COMPARISON: 12/14/2023. FINDINGS: Surgical changes and devices: None. Lungs and pleura: No pleural effusions or pneumothorax. Lungs are clear. Stable hyperaeration. Mediastinum: Mediastinal contours appear normal. Heart size is normal. Bones and chest wall: No suspicious bony lesions. Overlying soft tissues appear unremarkable. IMPRESSION: No acute cardiopulmonary process. No significant discrepancy with initial interpretation by overnight radiologist. Reviewed by: Ambrocio Jay MD on 03/05/2024 9:21 AM PDT Approved by: Ambrocio Jay MD on 03/05/2024 9:21 AM PDT Station ID: [id number]
[2024-03-05] MEDS: IPRATROPIUM/ALBUTEROL 3 ML NEB INH STA (16:23)
--- NOTE | 2024-03-05 17:05 | ED Physician Documentation ---
ED Addendum - Addendum Addendum: 03/05/24 16:57 The patient was signed out to me at change of shift, pending repeat troponin after presenting to the emergency department with hypoxia and respiratory distress. The patient has a history of COPD and had been out of her Symbicort for several days on had had increased shortness of breath and work of breathing. The patient had a sudden worsening overnight which prompted her presentation to the emergency department. Please see the note by Dr. Triana for further details on the patient's initial presentation. Patient was quite hypoxic when the medics picked her up but was doing much better by the time of signout. She was on BiPAP. Patient remained on BiPAP throughout the day and her repeat troponin was found to be 160, up from 10.9. I discussed the case with Dr. Valerio of cardiology at [facility], where the patient had been seen for her femoropopliteal bypass, and he felt the patient should be transferred to their facility. I did then sometime later talk to Dr. Tamra Herbert, the on-duty hospitalist, and she did initially accept the patient in transfer with plan to go to the stepdown unit. However, some hours later, we did receive a call back from [facility] stating that actually they did not think the patient could go to the stepdown unit because of BiPAP and they wanted me to talk to their tin worker instead. I did talk to Dr. Santillan, who requested that we trial the patient off of BiPAP to see if she could tolerate being off of it and avoid coming to the ICU. He requested that we would take the patient off of BiPAP for about 30 minutes and see how she was doing. The patient had already had an extended stay in the emergency department but at this point, we did take the patient off of BiPAP as requested and she was observed for 30 minutes. She was on room air for part of this time and was found to have an oxygen saturation of low 90s. However, she felt uncomfortable, stating that she was still feeling as though it was hard to breathe and get her air in and out. I did listen to her lungs which sounded fairly clear but did have diminished breath sounds. She was given a DuoNeb and placed on 2 L of oxygen per nasal cannula. The patient tolerated being off BiPAP for 30 minutes, so we did call [facility] back to let them know that the patient could go to the original bed that they had planned for her instead of the ICU. Dr. Santillan had already stated that he would speak with the hospitalist and let her know the plan. At this point in time, the plan is to transfer the patient to [facility]. She is agreeable to the transfer. She has received aspirin, Lopressor, and heparin for her non-ST elevation PA. She is chest pain-free at this time. Final impression 1. Non-ST elevation PA 2. COPD exacerbation Disposition: Transfer to acute care facility in serious condition.
[2024-03-05 17:21] VITALS: BP 135/78; O2SAT 96
== END 2024-03-05 17:30 | disposition short-term general hospital (02) ==
LOC: EDUNIT# → ED 04:48
DX: I21.4 Non-ST elevation (NSTEMI) myocardial infarction (principal); R06.03 Acute respiratory distress; J44.1 Chronic obstructive pulmonary disease with (acute) exacerbation; R09.02 Hypoxemia; T50.996A Underdosing of other drugs, medicaments and biological substances, initial encounter; Z91.138 Patient's unintentional underdosing of medication regimen for other reason; E87.6 Hypokalemia; I10 Essential (primary) hypertension; F17.200 Nicotine dependence, unspecified, uncomplicated
CPT/HCPCS: 36415; 36600; 71045; 80053; 82803; 83605; 83690; 83880; 84484; 85025; 85730; 87040; 87633; 93005; 94640; 94660; 96365; 96375; 99291; A9270